=== PATIENT | female | born 1945 | race Caucasian/White ===

== ENCOUNTER → 2020-03-15 15:20 | Outpatient (CLI) | payer MEDICARE, SELFPAY ==
[2020-03-15 14:28] VITALS: BMI 33.0
[2020-03-15 15:36] LABS: Absolute Lymphocyte Count 2.05 X10^3/uL (0.83-4.51); Absolute Neutrophil Count 5.8 X10^3/uL (2.0-7.7); Basophil# 0.08 X10^3/uL; Basophil% 0.9 % (0-1); Eosinophils% 4.4 % (0-5); Hematocrit 40.8 % (37-47); Hemoglobin 13.2 g/dL (12.0-15.0); Lymphocyte # 2.05 X10^3/ul (4.0); Lymphocyte % 22.8 % (19-41); Mean Corp Hgb Conc 32.4 g/dL (32-36); Mean Corpuscular Hgb 31.4 pg (27.0-32.0); Mean Corpuscular Volume 97.1 fL (81-99); Monocyte# 0.69 X10^3/uL; Monocyte% 7.7 % (0-10); NRBC Flagged by Analyzer 0 % (0-5); Neutrophil # 5.75 X10^3/uL (2.7-7.7); Platelet Count 209 K/mm3 (150-450); RBC Distribution Width SD 42.8 fl (35.1-43.9)
== END ==
PROVIDERS: PCP Physician Assistant; Referring Provider Internal Medicine Cardiovascular Disease; Visit Provider Internal Medicine Cardiovascular Disease
DX: Z01.810 Encounter for preprocedural cardiovascular examination (principal)
CPT/HCPCS: 36415; 85025

== ENCOUNTER 2022-09-17 12:32 | Day surgery (SDC) | payer MEDICARE, SELFPAY ==
--- NOTE | 2022-09-17 12:46 | PCM.HP.STD ---
[facility] - General General Date of Admission: 09/17/22 Date of Service: 09/17/22 Chief Complaint: Screening colonoscopy [facility] Narrative ALYCIA SMITH, is a 76 F who presents today for screening colonoscopy she has a past medical history of right bundle branch block, coronary artery disease, CAD status post CABG back in 2012 with mitral valve insufficiency. She had a colonoscopy approximately 25 years ago and had 2 adenomatous polyps . She comes back in today for screening colonoscopy. She is not having any chest pain or shortness of breath. She denies any nausea, vomiting or diarrhea. [facility]LY [facility] Medical History (Updated 09/12/22 @ 13:19 by Judi Yoo) Anemia Arthritis Asthma Atherosclerosis of coronary artery of [place] heart without angina pectoris Bladder disease Cancer Cardiology follow-up encounter Chronic ITP (idiopathic thrombocytopenic purpura) COPD (chronic obstructive pulmonary disease) CPAP (continuous positive airway pressure) dependence Diabetes Dietary restriction Dysphagia Essential hypertension GERD (gastroesophageal reflux disease) High cholesterol History of echocardiogram History of heart attack History of IBS History of irregular heartbeat History of renal disease History of stress test History of ulceration Hyperlipidemia IBS (irritable bowel syndrome) Insulin dependent diabetes mellitus Non-smoker Nonrheumatic mitral (valve) insufficiency NSTEMI (non-ST elevated myocardial infarction) (10/19/12) 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) Restless legs Right bundle branch block (RBBB) Sleep apnea Type 2 diabetes mellitus without complication Vitamin D deficiency Wears contact lenses Wears glasses Home Medications albuterol sulfate 90 mcg/actuation aerosol inhaler (Ventolin HFA) 2 puff inhalation Q4H PRN BREATHING 03/13/20 [History Last Taken Unknown] aspirin 81 mg chewable tablet 81 mg PO DAILY 03/13/20 [History Last Taken Unknown] biotin 5,000 mcg sublingual tablet 5,000 mcg sublingual DAILY 03/13/20 [History Last Taken Unknown] cholecalciferol (vitamin D3) 10 mcg (400 unit) tablet 10 mcg PO DAILY 03/13/20 [History Last Taken Unknown] coenzyme Q10 100 mg capsule 200 mg PO DAILY 03/13/20 [History Last Taken Unknown] fexofenadine 180 mg tablet (Cece Allergy) 180 mg PO DAILY PRN ALLERGIES 03/13/20 [History Last Taken Unknown] fluticasone 250 mcg-salmeterol 50 mcg/dose blistr powdr for inhalation (Advair Diskus) 1 inh inhalation BID 03/13/20 [History Last Taken Unknown] insulin glargine 100 unit/mL (3 mL) subcutaneous pen (Lantus Solostar U-100 Insulin) 21 unit subcut DAILY 03/13/20 [History Last Taken Unknown] insulin lispro 100 unit/mL subcutaneous solution (Humalog U-100 Insulin) 1 sliding scale dose subcut USEASDIRECTD 03/13/20 [History Last Taken Unknown] lactobacillus combination no.8 3 billion cell capsule (Adult Probiotic) 3,000 mmu cells PO DAILY 03/13/20 [History Last Taken Unknown] losartan 50 mg tablet 50 mg PO DAILY 03/13/20 [History Last Taken Unknown] pravastatin 40 mg tablet 40 mg PO QHS 03/13/20 [History Last Taken Unknown] hydrochlorothiazide 25 mg tablet 12.5 mg PO DAILY 03/15/21 [History Last Taken Unknown] calcium carbonate 600 mg calcium (1,500 mg) tablet 1,200 mg PO BID 02/18/22 [History Last Taken Unknown] trazodone 50 mg tablet 50 mg PO QHS 02/18/22 [History Last Taken Unknown] fluticasone propionate 50 mcg/actuation nasal spray,suspension (Flonase Allergy Relief) 1 spray intranasal BID 07/15/22 [History Last Taken Unknown] magnesium oxide 400 mg PO DAILY 07/15/22 [History Last Taken Unknown] Allergy/AdvReac Type Severity Reaction Status Date / Time atorvastatin [From Lipitor] Allergy Intermediate unknown Verified 07/15/22 13:02 cefuroxime Allergy Intermediate caused Verified 07/15/22 13:02 knee pain metoprolol Allergy Intermediate difficulty Verified 07/15/22 13:02 breathing omeprazole Allergy Other Verified 07/15/22 13:02 Penicillins Allergy PT UNSURE Verified 07/15/22 13:02 OF REACTION Family History (Updated 07/15/22 @ 12:57 by Chelsie Kincaid) Mother , 36 Cancer lung Father Diabetes CAD (coronary artery disease) Hypertension Sister Cancer Bile duct,liver Factor V Leiden Diabetes CVA (cerebral vascular accident) Grandfather CAD (coronary artery disease) Daughter Colon cancer Uncle Colon cancer Surgical History (Updated 09/12/22 @ 13:19 by Judi Yoo) H/O coronary artery bypass surgery (10/20/12) History of cardiac catheterization History of carpal tunnel surgery of right wrist History of colonoscopy History of hysterectomy History of left heart catheterization (10/19/12) History of nasal septoplasty (1969) History of total right knee replacement (TKR) Hx of cyst of breast Social History (Updated 07/15/22 @ 12:58 by Chelsie Kincaid) household members: spouse current occupational status: employed Smoking Status: Never smoker alcohol intake: current details: Rarely caffeine: Yes Type: coffee ROS Review of Systems ROS Unobtainable: other Constitutional Constitutional: Denies fatigue, fever(s), poor appetite, weight gain or weight loss ENT HEENT: Denies mouth lesions Cardiovascular Cardiovascular: Denies abdominal bloating, abdominal edema or abdominal pain Respiratory/Chest Respiratory/Chest: Denies change in mental status, change in phlegm color, chest congestion or chest tightness Gastrointestinal Gastrointestinal: Denies belching, bloating, change in bowel habits, change in stool character, chewing difficulty, coffee ground emesis, constipation, cramping, diarrhea, dyspepsia, dysphagia, early satiety, excessive flatus, fecal incontinence, heartburn, hematemesis, hematochezia, hemorrhoids, loose stools, melena, nausea, odynophagia, rectal bleeding, tenesmus, vomiting or weight changes Genitourinary Genitourinary: Denies abdominal discomfort, burning urination or itching Musculoskeletal Musculoskeletal: Reports as per HPI; Denies muscle weakness or myalgias Integumentary Integumentary: Denies jaundice Neurologic Neurologic: Denies lack of coordination or weakness Psychiatric Psychiatric: Denies confusion, depression, memory loss, mood swings, paranoia or suicidal ideation Endocrine Endocrinology: Denies systems reviewed and no addt'l complaints, except as documented Hematologic/Lymphatic Hematologic/Lymphatic: Denies anemia, easy bleeding, easy bruising or lymphadenopathy Allergic/Immunologic Allergic/Immunologic: Denies systems reviewed and no addt'l complaints, except as documented Assessment & Plan Assessment/Plan (1) Encounter for screening for malignant neoplasm of colon: PLAN: She will undergo screening colonoscopy. She was explained alternatives, risk, benefits include not withstanding bleeding, infection, sepsis, perforation, need for emergent surgery . She have an ASA of 3.
[2022-09-17 13:18] VITALS: BP 182/88; PULSE 83; RESP 17; TEMP 36.6; O2SAT 96; BMI 30.9
[2022-09-17] MEDS: Lactated Ringers 1,000 ML 15 ML IV (13:23)
--- NOTE | 2022-09-17 13:45 | COLBX_PTH ---
PATIENT: ALYCIA SMITH LOC: EN U#:[id number] AGE/SX: 76/F ROOM: RE09/17/[address]: Dr. Juliano Escamilla DO : 1945 BED: DIS: 09/17/2022 SPEC #: [id number] RECD: 09/17/22 14:40 STATUS: JOSEPH RESky #: [id number] CHAI: 09/17/22 13:[address]: Juliano Escamilla DEPT: SURGICAL PATHOLOGY RECD BY: Anum Godoy ENTERED: 09/18/22 10:10 SP TYPE: COLON BX OT DR: MILDRED Smith Tissues: COLON BIOPSY Procedures: Surgery Specimen Level IV HEADER OPERATION: Colonoscopy ? open access (MAC) PRE-OP DIAGNOSIS: Screening TISSUE SUBMITTED: Hepatic flexure polyp biopsy MICROSCOPIC DIAGNOSIS Hepatic flexure polyp, biopsy: Fragments of tubular adenoma. SJ:jessica 09/19/2022 MICROSCOPIC DESCRIPTION Slides are reviewed. GROSS DESCRIPTION Received in fixative is one container labeled with the patient's name and designated hepatic flexure polyp biopsy. The specimen consists of multiple irregular fragments of light gamez soft tissue that in aggregate measure 1.4 x 0.3 x 0.1 cm. The specimen is totally submitted in one cassette. / SJ:rg 09/18/2022 TC:1 CPT: 64525
[2022-09-17 14:05] LABS: Bedside Glucose 163 mg/dL (74-106)
[2022-09-17 14:18] VITALS: BP 110/56; BP 182/88; PULSE 71; RESP 16; TEMP 36.9; O2SAT 100
--- NOTE | 2022-09-17 14:18 | OP.COLON_ITS ---
Patient Name: Hillary Millan Procedure Date: 09/17/2022 1:51 PM Date of : 1945 Age: 76 Procedure: Colonoscopy Indications: Screening for colorectal malignant neoplasm Providers: Juliano Escamilla DO Referring MD: Juliano Escamilla DO Medicines: Monitored Anesthesia Care Patient Profile: This is a 76 year old female. Refer to note in patient chart for documentation of history and physical. Last Colonoscopy: more than 10 years ago. Complications: No immediate complications. Procedure: Pre-Anesthesia Assessment: - Prior to the procedure, a History and Physical was performed, and patient medications and allergies were reviewed. The risks and benefits of the procedure and the sedation options and risks were discussed with the patient. All questions were answered and informed consent was obtained. Patient identification and proposed procedure were verified by the physician in the pre-procedure area. Mental Status Examination: alert and oriented. Respiratory Examination: clear to auscultation. CV Examination: normal. Prophylactic Antibiotics: The patient does not require prophylactic antibiotics. Prior Anticoagulants: The patient has taken no previous anticoagulant or antiplatelet agents. ASA Grade Assessment: II - A patient with mild systemic disease. After reviewing the risks and benefits, the patient was deemed in satisfactory condition to undergo the procedure. The anesthesia plan was to use moderate sedation / analgesia (conscious sedation). Immediately prior to administration of medications, the patient was re-assessed for adequacy to receive sedatives. The heart rate, respiratory rate, oxygen saturations, blood pressure, adequacy of pulmonary ventilation, and response to care were monitored throughout the procedure. The physical status of the patient was re-assessed after the procedure. After I obtained informed consent, the scope was passed under direct vision. Throughout the procedure, the patient's blood pressure, pulse, and oxygen saturations were monitored continuously. The pediatric colonoscope was introduced through the anus and advanced to the cecum, identified by appendiceal orifice and ileocecal valve. The colonoscopy was performed without difficulty. The patient tolerated the procedure well. The quality of the bowel preparation was adequate. Scope In: 2:02:15 PM Scope Withdrawal Time 0 hours 7 minutes 28 seconds Scope Out: 2:13:40 PM Total Procedure Duration Time 0 hours 11 minutes 25 seconds Findings: The perianal and digital rectal examinations were normal. Multiple small-mouthed diverticula were found in the recto-sigmoid colon, sigmoid colon and descending colon. Two sessile polyps were found in the hepatic flexure. The polyps were 1 to 2 mm in size. These polyps were removed with a cold snare. Resection and retrieval were complete. Verification of patient identification for the specimen was done. Estimated blood loss was minimal. Impression: - Diverticulosis in the recto-sigmoid colon, in the sigmoid colon and in the descending colon. - Two 1 to 2 mm polyps at the hepatic flexure, removed with a cold snare. Resected and retrieved. Recommendation: - Repeat colonoscopy in 5 years for surveillance. - Continue present medications. Procedure Code(s): --- Professional --- 25457, Colonoscopy, flexible; with removal of tumor(s), polyp(s), or other lesion(s) by snare technique CPT copyright 2017 [employer]. All rights reserved. The codes documented in this report are preliminary and upon capital equipment specialist review may be revised to meet current compliance requirements. Juliano Escamilla DO 09/17/2022 2:18:29 PM This report has been signed electronically. Number of Addenda: 0 Note Initiated On: 09/17/2022 1:51 PM
--- NOTE | 2022-09-17 14:19 | OP.CCLET_ITS ---
09/17/2022 Tracie Blandon Re : Colonoscopy procedure for Hillary Millan Dear Barber This procedure was performed on Saturday, September 17, 2022. My impressions and recommendations are as follows: Impressions : - Diverticulosis in the recto-sigmoid colon, in the sigmoid colon and in the descending colon. - Two 1 to 2 mm polyps at the hepatic flexure, removed with a cold snare. Resected and retrieved. Recommendations : - Repeat colonoscopy in 5 years for surveillance. - Continue present medications. My findings are described in the full procedure note, which is enclosed. If I can be of further assistance, please feel free to contact me at . Sincerely, Juliano Escamilla, 09/17/2022 2:18:29 PM This report has been signed electronically.
[2022-09-17 14:21] VITALS: BP 110/62; BP 182/88; PULSE 79; RESP 16; O2SAT 98
[2022-09-17 14:25] VITALS: BP 132/74; BP 182/88; PULSE 71; RESP 16; O2SAT 98
[2022-09-17 14:30] VITALS: BP 119/80; BP 182/88; PULSE 71; RESP 16; TEMP 36.3; O2SAT 100
[2022-09-17 15:00] VITALS: BP 182/88
== END 2022-09-17 15:07 | disposition home or self-care (01) ==
LOC: EN 12:35 → AC 12:38
PROVIDERS: PCP Physician Assistant; Referring Provider Physician Assistant; Visit Provider Internal Medicine Gastroenterology
PROC: 0DJD8ZZ Inspection of Lower Intestinal Tract, Via Natural or Artificial Opening Endoscopic (ICD-10-PCS; CPT 45378; principal; 2022-09-17 13:40)
DX: Z12.11 Encounter for screening for malignant neoplasm of colon (principal); J44.9 Chronic obstructive pulmonary disease, unspecified; D69.3 Immune thrombocytopenic purpura; E11.9 Type 2 diabetes mellitus without complications; Z79.4 Long term (current) use of insulin; D12.3 Benign neoplasm of transverse colon; K57.30 Diverticulosis of large intestine without perforation or abscess without bleeding; I25.10 Atherosclerotic heart disease of native coronary artery without angina pectoris; I45.10 Unspecified right bundle-branch block; I34.0 Nonrheumatic mitral (valve) insufficiency; I10 Essential (primary) hypertension; I25.2 Old myocardial infarction; E78.00 Pure hypercholesterolemia, unspecified; Z95.1 Presence of aortocoronary bypass graft; Z79.82 Long term (current) use of aspirin; Z79.899 Other long term (current) drug therapy; Z86.010 Personal history of colon polyps; Z80.0 Family history of malignant neoplasm of digestive organs
CPT/HCPCS: 45385; 82962; 88305; J7120; J2405